=== PATIENT | female | born 2000 | race Caucasian/White ===

== ENCOUNTER 2021-03-18 07:31 | Day surgery (SDC) | payer BC ==
[~2021-03-18 07:31] MED LIST: ALBU90OI INH; Bentyl20 MG PO; HYDR1TAB94 PO; OMEP20ER PO; ONDA4ODT MM; OXYC5 PO; RIZATRIPTAN10 MG PO; RIZATRIPTAN10 MG SL; TOPI100 PO; TRAM50 PO; ZOLOFT100 M7 PO
--- NOTE | 2021-03-18 08:06 | NUR ---
IN[facility] ADMISSION STARTED
--- NOTE | 2021-03-18 08:44 | NUR ---
03/18/21 0844 Lauryn Guzman History, Chart, Medications and Allergies reviewed before start of procedure. Patient confirms NPO status and agrees with scheduled surgery. 3-LEAD EKG REVIEWED WITH PHYSICIAN PRIOR TO START OF PROCEDURE. MONITOR INTACT WITH CONTINUOUS PULSE OXIMETRY AND INTERMITTENT BP. PATIENT DETERMINED TO BE ASA APPROPRIATE FOR PROPOFOL SEDATION PRIOR TO START OF PROCEDURE BY . Bite Block Placed & REMOVED AT END OF CASE.
--- NOTE | 2021-03-18 10:16 | NUR ---
Discharge instructions reviewed with patient. Patient verbalizes understanding. Copy given to patient to take home. Discharged via wheelchair to private car for ride home.
== END 2021-03-18 10:18 | disposition home or self-care (01) ==
LOC: ORSCMMR 07:31 → ORD 08:30 → ORSCMMR 10:18
PROVIDERS: Internal Medicine Gastroenterology
PROC: 0DBE8ZX Excision of Large Intestine, Via Natural or Artificial Opening Endoscopic, Diagnostic (ICD-10-PCS; principal; 2021-03-18 08:30)
PROC: 0DB98ZX Excision of Duodenum, Via Natural or Artificial Opening Endoscopic, Diagnostic (ICD-10-PCS; principal; 2021-03-18 08:30)
PROC: 0DB78ZX Excision of Stomach, Pylorus, Via Natural or Artificial Opening Endoscopic, Diagnostic (ICD-10-PCS; principal; 2021-03-18 08:30)
DX: R19.5 Other fecal abnormalities (principal); R10.13 Epigastric pain; K29.80 Duodenitis without bleeding; F41.9 Anxiety disorder, unspecified; Z79.899 Other long term (current) drug therapy
CPT/HCPCS: 88305; 88342; A9270; J2250; J2704; J7120